=== PATIENT | female | born 1985 | race Caucasian/White ===

== ENCOUNTER 2016-10-08 15:50 | Emergency (ER) | payer MEDICAID ==
[~2016-10-08] VITALS: Ht 167.6 cm; Wt 85.0 kg
[~2016-10-08 15:50] MED LIST: ALBU8.5H3 INH; ALBUTEROL PRN
[2016-10-08 15:51] VITALS: BP 135/70
== END 2016-10-08 17:47 | disposition home or self-care (01) ==
LOC: ED 17:41
DX: J20.9 Acute bronchitis, unspecified (principal); J45.31 Mild persistent asthma with (acute) exacerbation; J01.00 Acute maxillary sinusitis, unspecified; F17.200 Nicotine dependence, unspecified, uncomplicated
CPT/HCPCS: 71010; 99283

== ENCOUNTER 2017-04-25 13:51 | Emergency (ER) | payer SELFPAY ==
[~2017-04-25] VITALS: Ht 167.6 cm; Wt 80.0 kg
[~2017-04-25 13:51] MED LIST changes: -ALBU8.5H3 INH; +ALBU8.5H8 INH
[2017-04-25] MEDS ORDERED: SODIUM CHLORIDE 0.9% 1,000ML IVBOLUS ONE (14:30)
[2017-04-25] MEDS ORDERED: PLEASE ENTER HEIGHT AND WEIGHT MC SCH (14:30)
[2017-04-25] MEDS ORDERED: SODIUM CHLORIDE FLUSH 10ML SYR IVF ONE (14:30)
[2017-04-25] MEDS ORDERED: ONDANSETRON 2MG/ML, 2ML IVPush ONE (14:30)
[2017-04-25 14:37] LABS: HEMATOCRIT 41.1 % (34.6-47.8); WHITE BLOOD COUNT 10.8 x10^3/uL (3.4-10)
[2017-04-25] MEDS: MORPHINE SULFATE 4 MG/ML, 1ML IVPush PRN ×2 (14:45→16:00)
[2017-04-25 14:49] LABS: ASPARTATE AMINO TRANSFERASE 8 U/L (15-37); BLOOD UREA NITROGEN 10 mg/dL (7-18)
[2017-04-25] MEDS ORDERED: morphine SULFATE 10 MG/ML, 1ML ONE (15:43)
[2017-04-25] MEDS ORDERED: OMNIPAQUE 350 MG/ML, 100ML BOTTLE ONE (16:42)
[2017-04-25 18:28] VITALS: BP 123/81
== END 2017-04-25 18:30 | disposition home or self-care (01) ==
LOC: ED 14:40
DX: N83.201 Unspecified ovarian cyst, right side (principal); R10.31 Right lower quadrant pain; R11.0 Nausea; R10.32 Left lower quadrant pain; J45.909 Unspecified asthma, uncomplicated; Z90.710 Acquired absence of both cervix and uterus
CPT/HCPCS: 36415; 74177; 80053; 81001; 83690; 85025; 87086; 96361; 96374; 96375; 96376; 99285; J2405; J7030; Q9967

== ENCOUNTER 2017-10-18 21:22 | Emergency (ER) | payer MEDICAID ==
[~2017-10-18] VITALS: Ht 167.6 cm; Wt 94.1 kg
[2017-10-18 21:24] VITALS: BP 149/89
[2017-10-18 22:05] LABS: MICROSCOPIC AUTO
[2017-10-18 22:08] LABS: CULTURE INDICATED? YES
[2017-10-18 22:09] LABS: HCG UR SG 1.025 (1.003-1.030)
== END 2017-10-18 22:47 | disposition home or self-care (01) ==
LOC: ED 22:40
DX: N30.01 Acute cystitis with hematuria (principal); J45.909 Unspecified asthma, uncomplicated; Z90.710 Acquired absence of both cervix and uterus; F17.200 Nicotine dependence, unspecified, uncomplicated
CPT/HCPCS: 81001; 81025; 87077; 87086; 87186; 99284

== ENCOUNTER 2020-03-24 14:07 | Emergency (ER) | payer MEDICAID, OTHER ==
[~2020-03-24] VITALS: Ht 167.6 cm; Wt 92.0 kg
[2020-03-24 14:34] VITALS: BP 130/90
--- NOTE | 2020-03-24 14:51 | NUR ---
PT REPORTS PAIN ON LEFT SHOULDER DOWN TO ARM, STATES IT FEELS LIKE A BURNING FEELING, CURRENTLY DOING PT OUTPATIENT AND HAD RECENT MRI. ERMD AT BEDSIDE FOR EVAL.
[2020-03-24] MEDS ORDERED: GABA-827 PO (15:00)
[2020-03-24] MEDS ORDERED: DIAZEPAM 5 MG TABLET PO/NG ONE (15:00)
[2020-03-24] MEDS ORDERED: KETOROLAC 30 MG/1 ML IM ONE (15:00)
[2020-03-24] MEDS ORDERED: DIAZEPAM 5 MG TABLET ONE (15:02)
[2020-03-24] MEDS ORDERED: KETOROLAC 60 MG/2 ML ONE (15:02)
== END 2020-03-24 15:34 | disposition home or self-care (01) ==
LOC: ED 15:30
DX: M54.12 Radiculopathy, cervical region (principal); G89.29 Other chronic pain; M54.2 Cervicalgia; R20.0 Anesthesia of skin
CPT/HCPCS: 96372; 99283; J1885

== ENCOUNTER 2020-07-05 13:30 | Emergency (ER) | payer OTHER ==
[~2020-07-05] VITALS: Ht 167.6 cm; Wt 98.9 kg
[~2020-07-05 13:30] MED LIST changes: +GABA-827 PO
[2020-07-05 13:34] VITALS: BP 123/55
[2020-07-05] MEDS ORDERED: OXYcodone/APAP 5/325MG TABLET ONE (13:54)
[2020-07-05] MEDS ORDERED: KETOROLAC 30 MG/1 ML ONE (13:54)
[2020-07-05] MEDS ORDERED: OXYcodone/APAP 5/325MG TABLET PO ONE (14:00)
[2020-07-05] MEDS ORDERED: KETOROLAC 30 MG/1 ML IM ONE (14:00)
== END 2020-07-05 15:14 | disposition home or self-care (01) ==
LOC: ED 14:55
DX: M75.111 Incomplete rotator cuff tear or rupture of right shoulder, not specified as traumatic (principal); M25.511 Pain in right shoulder; J45.909 Unspecified asthma, uncomplicated; Z90.710 Acquired absence of both cervix and uterus
CPT/HCPCS: 73030; 96372; 99283; J1885